=== PATIENT | female | born 1985 | race Caucasian/White ===

== ENCOUNTER 2018-06-28 10:59 | Emergency (ER) | payer OTHER ==
[~2018-06-28] VITALS: Ht 160 cm; Wt 54.5 kg
[2018-06-28 11:15] VITALS: TEMP 98.5
[2018-06-28 12:10] VITALS: BP 128/90; PULSE 82
== END 2018-06-28 12:07 | disposition home or self-care (01) ==
LOC: COL.ER 10:59 → EDBD 11:01 → COL.ER 12:07
DX: S61.211A Laceration without foreign body of left index finger without damage to nail, initial encounter (principal); W26.8XXA Contact with other sharp object(s), not elsewhere classified, initial encounter